=== PATIENT | female | born 1995 | race Caucasian/White ===

== ENCOUNTER 2016-11-23 22:30 | Emergency (ER) | payer OTHER ==
[2016-11-24 00:43] LABS: HEMOGLOBIN 14.5 gm/dl (12.3-15.3); RED BLOOD COUNT 4.51 M/UL (4.00-5.10); WHITE BLOOD COUNT 10.3 K/UL (4.5-11.0)
[2016-11-24 00:59] LABS: BUN/CREATININE RATIO 15 (0-10)
[2016-12-29] MEDS ORDERED: NORCO 5-325 TA1 EACH PO (10:18)
[2016-12-29] MEDS ORDERED: IBUPROFEN600 MG PO (10:19)
== END 2016-11-24 04:19 | disposition home or self-care (01) ==
LOC: ER1 22:30
PROVIDERS: Emergency Medicine
DX: R10.11 Right upper quadrant pain (principal); R11.0 Nausea; R68.83 Chills (without fever); R19.7 Diarrhea, unspecified; F17.210 Nicotine dependence, cigarettes, uncomplicated
CPT/HCPCS: 36415; 76705; 80053; 81001; 83690; 84703; 85025; 87086; 96361; 96374; 96375; 99284; J2270; J2405; J7030

== ENCOUNTER 2016-11-30 17:49 | Emergency (ER) | payer OTHER ==
[2016-11-30 19:26] LABS: HEMOGLOBIN 13.2 gm/dl (12.3-15.3); RED BLOOD COUNT 4.12 M/UL (4.00-5.10); WHITE BLOOD COUNT 9.5 K/UL (4.5-11.0)
[2016-11-30 19:29] LABS: BUN/CREATININE RATIO 13 (0-10)
[2016-12-29] MEDS ORDERED: NORCO 5-325 TA1 EACH PO (10:18)
[2016-12-29] MEDS ORDERED: IBUPROFEN600 MG PO (10:19)
== END 2016-11-30 21:40 | disposition home or self-care (01) ==
LOC: ER1 17:49
PROVIDERS: Emergency Medicine
DX: O99.89 Other specified diseases and conditions complicating pregnancy, childbirth and the puerperium (principal); R11.0 Nausea; R42 Dizziness and giddiness; O23.41 Unspecified infection of urinary tract in pregnancy, first trimester; O99.331 Smoking (tobacco) complicating pregnancy, first trimester; F17.210 Nicotine dependence, cigarettes, uncomplicated; Z3A.01 Less than 8 weeks gestation of pregnancy
CPT/HCPCS: 36415; 76830; 80053; 81001; 82150; 83690; 84702; 84703; 85025; 99284; J2405; J7030

== ENCOUNTER → 2016-11-30 | Outpatient (CLI) | payer OTHER ==
[~2016-11-30] MED LIST: IBUPROFEN600 MG PO; NORCO 5-325 TA1 EACH PO
== END ==
LOC: NM 13:00
DX: R10.11 Right upper quadrant pain (principal)
CPT/HCPCS: 78227; A9537; J2805

== ENCOUNTER → 2016-12-29 | Day surgery (SDC) | payer OTHER ==
[2016-12-29 08:13] LABS: HEMOGLOBIN 13.8 gm/dl (12.3-15.3); RED BLOOD COUNT 4.32 M/UL (4.00-5.10); WHITE BLOOD COUNT 10.7 K/UL (4.5-11.0)
== END | disposition home or self-care (01) ==
LOC: OR 07:34
PROVIDERS: Obstetrics & Gynecology
PROC: 10D17ZZ Extraction of Products of Conception, Retained, Via Natural or Artificial Opening (ICD-10-PCS; principal; 2016-12-29 09:00)
DX: O02.1 Missed abortion (principal); F32.9 Major depressive disorder, single episode, unspecified; F17.210 Nicotine dependence, cigarettes, uncomplicated; Z82.49 Family history of ischemic heart disease and other diseases of the circulatory system; Z79.899 Other long term (current) drug therapy
CPT/HCPCS: 36415; 81001; 85025; J1885; J2250; J2405; J2795; J3010; J7030; J7120